=== PATIENT | male | born 1965 | race Caucasian/White ===

== ENCOUNTER → 2024-11-02 | Outpatient (CLI) | payer OTHER ==
--- NOTE | 2024-11-03 10:33 | HMCIMG ---
EXAM: CT Cardiac calcium scoring. CLINICAL HISTORY: CAD screening. TECHNIQUE: Thin collimated axial CT cardiac images were obtained. A CT scan is done according to ALARA (As Low As Reasonably Achievable). CONTRAST: None. COMPARISON: CT dated 06/28/2008. FINDINGS: Calcium Score: VESSEL Number of lesions Volume mm3 Equi. Mass/mg Calcium score LM 0 00.0 --.-- 00.0 LAD 3 80.1 --.-- 111.9 LCX 1 3.0 --.-- 3.7 RCA 0 0.0 --.-- 0.0 Total 4 83.1 --.-- 115.6 IMPRESSION: The calcium score is 115.6. This places the patient at the 77th percentile in comparison to a group of patients asymptomatic for coronary artery disease with the same age and gender. /[place]
== END | disposition home or self-care (01) ==
LOC: RAH 14:15
PROVIDERS: ATTEND Physician Assistant Medical
DX: Z13.6 Encounter for screening for cardiovascular disorders (principal)
CPT/HCPCS: 75571